=== PATIENT | female | born 1985 | race Caucasian/White ===

== ENCOUNTER 2024-09-13 05:26 | Emergency (ER) | payer OTHER, SELFPAY ==
[2024-09-13] VITALS (10 sets, daily range): BP systolic 172–203; BP diastolic 103–115; PULSE 98–110; RESP 16–33; TEMP 36.9; O2SAT 93–100
--- NOTE | ~2024-09-13 | CT_ITS ---
CLINICAL INDICATION: Left flank pain COMPARISON: None. TECHNIQUE: Multiple contiguous axial images of the abdomen and pelvis were performed without the admi nistration of intravenous contrast The dose-length product (DLP) was 1779.03 mGy-cm. Automated exposure control and iterative reconstruction technique were employed. FINDINGS/OBSERVATIONS: Visualized lower thorax: Dependent atelectasis. The remainder of the bilateral lung bases are clear. The heart is of normal size, without pericardial effusion. Small hiatal hernia is present. Liver: The liver demonstrates homogeneously decreased attenuation (consistent with fatty infiltration) and i s markedly enlarged measuring 22 cm in longitudinal dimension. Gallbladder and biliary system: The gallbladder is only minimally distended, and otherwise unremarkable. Pancreas: Limited evaluation of the pancreas secondary to the lack of intravenous contrast. Spleen: The spleen demonstrates homogeneous attenuation and is not enlarged. Kidneys: Global enlargement of the left kidney with significant left-sided hydroureteronephrosis exte nding to the left UVJ where a 4 mm calculus is identified. The right kidney is unremarkable, as is the course of the right ureter. Adrenal glands: Unremarkable. Gastrointestinal tract: Fecal stasis within the colon. Appendix: The appendix is not definitively visualized. However, no pericecal inflammatory change is identified suggest the presence of acute appendicitis. Vasculature: Unremarkable. Lymph nodes: Limited evaluation without intravenous contrast. Pelvic structures: The bladder is only minimally distended with a 4 mm calculus at the left UVJ. The uterus is anteverted and anteflexed, and otherwise unremarkable. Body wall and musculoskeletal: There are bridging endplate osteophytes at multiple levels in the lower thoracic spine, consistent wi th diffuse idiopathic skeletal hyperostosis (DISH). Degenerative disease at the level of L5/S1. IMPRESSION: Global enlargement of the left kidney with significant left-sided hydroureteronephrosis secondary to a 4 mm calculus at the left UVJ. Reviewed, dictated and finalized at location A. IMPRESSION: Global enlargement of the left kidney with significant left-sided hydroureteron ephrosis secondary to a 4 mm calculus at the left UVJ.
--- OUTSIDE RECORDS SUMMARY | 2024-09-13 05:28 | XMS_ITS | Patient Health Record ---
Author Organization [facility] Address [address] [place], [place] [id number] Care Team Providers Care Assembler Surgical Garment Name Role Phone ARIAN ARNOLD Unavailable [phone] ElanLucie Unavailable Unavailable Reason For Referral No Information Medications Medication SIG (Take, Route, Frequency, Duration) Notes Start Date End Date Status Medrol Dosepak ORAL Medrol DosepakOr iginal MedicationMedrol Dosepak *Reorder from [employer] for eRx and Interaction Alerts* 07/08/2018 Active Plan Of Treatment No Information Insurance Providers Payer Name Payer Address Payer Phone Subscriber Number Group Number Insured Name Patient Relationship to Insured Coverage Start Date Coverage End Date C[employer] [address] [place] [phone] [id number] YOLY LOZANO Self - patient is the insured
--- OUTSIDE RECORDS SUMMARY | 2024-09-13 05:28 | XMS_ITS | Continuity of Care Document ---
Author Organization [facility] Address [address] [place] [address] [place] [address] Phone Care Team Providers Care Transformer Molder Name Role Phone Yazan Deal MD Unavailable Unavailable Advance Directives Directive Yes / No Effective Date File Name No Information Encounters Encounter Description Practice Location Reason(s) For Visit Diagnoses Date Provider Providers Copied on Encounter [facility], [id number] [place] [address] [address], [place], [place], [id number], [place] tel:[phone] [place] Skyler Neff No Information Feb-2 199 9 Toyin Hand. [address] [facility], [facility], [place], [place], [id number], [place]. tel:[phone] Family History Family Member Type Diagnosis Age At Onset No Information Payers Payer name Insurance type Covered libertarian ID Authoriza tion(s) No Information Social History Type Description Quantity Date Captured Comments Sex Female Smoking Status No Information Chief Complaint And Reason For Visit No Information Reason For Referral Reason For Referral No Information History Of Present Illness Encounter Date Complaint History Of Prese nt Illness No Information Functional Status Date Functional Assessmen t No Information Instructions Date Instruction Additional Infor mation No Information Assessments Type Assessment Date No Information Patient Care Teams Name Effective Dates (start - stop) Status Members No Information
--- OUTSIDE RECORDS SUMMARY | 2024-09-13 05:28 | XMS_ITS | Patient Health Record ---
Author Organization [facility] Address [address] [place] [address] Support Name Relationship Address Phone Vira Dang Guarantor Unknown Unavailable Reason For Referral No Information Medications Medication SIG (Take, Route, Frequency, Duration) Notes Start Date End Date Status NONE *Reorder from [facility] for eRx and Interaction Alerts* Active Problems Problem Type SNOMED Code ICD Code Onset Dates Problem Status W/U Status Risk Notes Problem Generalized osteoarthritis (disorder) (719948404) Generalized osteoarthrosis, unspecified site (715.00) 3 Active confirmed Problem Pain in unspecified limb (M79.609) 3 Active confirmed Plan Of Treatment No Information Insurance Providers Payer Name Payer Address Payer Phone Subscriber Number Group Number Insured Name Patient Relationship to Insured Coverage Start Date Coverage End Date [employer] [address] JONO Aquino [id number] Vira Dang Self - patient is the insured 3
--- OUTSIDE RECORDS SUMMARY | 2024-09-13 05:28 | XMS_ITS | Clinical Summary ---
Author Organization [facility] Address [address] [place] [address] Care Team Providers Care Caretaker Resort Name Role Phone Angelique Rose NP Primary Care Provider [phone] Allergies No known active allergies Medications multivitamin tablet tablet take 1 tablet by oral route every day with food 0 0 3 Active mupirocin (BACTROBAN) 2 % ointment Apply topically 2 (two) times a day as needed (Apply to the affected area twice daily as neededd for backterial rash) 30 g 3 Active progesterone (PROMETRIUM) 200 mg capsule Take one capsule at bedtime on days 1-12 every 3 months. 12 capsule 3 4 Active loratadine (CLARITIN) 10 mg tablet Take 1 tablet (10 mg total) by mouth daily Active PARoxetine (PAXIL) 40 mg tabletIndicatio ns:CALLIE (generalized anxiety disorder) Take 1 tablet (40 mg total) by mouth every morning 90 tablet 3 5 Active busPIRone (BUSPAR) 15 mg tabletIndicatio ns:CALLIE (generalized anxiety disorder) Take 1 tablet (15 mg total) by mouth 3 (three) times a day 270 tablet 1 5 02/11/20 25 Active Active Problems Problem Noted Date Diagnosed Date Prehypertension 06/04/2024 Annual physical exam 06/04/2024 Assessment & Plan (06/04/2024 5:21 PM CDT): -Recommended: Healthy diet. Avoiding junk food/fast food. -30 minutes of exercise most days of the week. Increase to 45 minutes for weight loss. Health Maintenance reviewed - labs ordered. -Influenza vaccine every year Recommend: - Topic Date Due DTaP/Tdap/Td Vaccine (2 - Td or Tdap) 01/09/2023 -F/u in 1 year for Annual PE or sooner if needed Polycystic ovarian syndrome 07/26/2023 CALLIE (generalized anxiety disorder) 06/21/2023 Overview (06/21/2023): Needs improvement. Continue Paxil and increase buspirone. Encouraged mindfulness consider counseling. Continue p.r.n. hydroxyzine History of methicillin resis tant Staphylococcus aureus infection 05/28/2014 Increased glucose level 12/02/2013 Overview (06/15/2016): Elevated blood sugar Assessment & Plan (06/21/2023 5:19 PM CDT): Patient is at increased risk for diabetes. Check A1c and fasting glucose. Encouraged healthy diet, exercise, weight loss Palpitations 07/26/2013 Overview (06/16/2016): PALPITATIONS Atopic rhinitis 07/26/2013 Overview (06/16/2016): ALLERGIC RHINITIS NOS Morbid obesity with BMI of 70 and over, adult Overview (06/16/2016): Obesity, Morbid Assessment & Plan (06/04/2024 5:19 PM CDT): Refer to bariatric surgery. Discussed options Assessment & Plan (06/21/2023 5:19 PM CDT): Chronic. Needs improvement. Brief supportive counseling provided today in regards to healthy diet, exercise and weight loss. We did discuss use of GLP 1 medications for weight loss but that this currently unlikely to be covered by her health insurance plan. I did briefly discussed the side effects and use of these medications. She will continue on diet and lifestyle modifications Resolved Problems Problem Noted Date Diagnosed Date Resolved Date Left foot pain 07/03/2018 03/23/2022 Carbuncle/boil 12/02/2013 03/23/2022 Overview (06/15/2016): Recurrent boils Immunizations Immunization Administration Dates Next Due Hep A, Unspecified 06/14/2001,06/14/2000 Hep B, Unspecified 06/14/2001,06/14/2000 Influenza, Quadrivalent, Spl it, Preservative Free, Intramuscular 12/13/2022,12/23/2021,12/10/2020,03/12 Influenza, Trivalent, IM (MDV) 12/10/2013 Influenza, Trivalent, Preser vative Free, Intramuscular 12/26/2023,12/10/2012 Influenza, Unspecified 12/23/2021,2019,12/12/2017,12/11 Meningococcal ACWY, Unspecified 06/14/2001 Pfizer SARS-CoV-2 Monovalent Vaccination (12+ Yrs) PURPLE 01/19/2021,04/09/2020,03/19/2020 Tdap 01/09/2013 Surgical History Surgery Date Site/Laterality Comments KNEE ARTHROSCOPY W/ LATERAL RELEASE Torn meniscus - 2014 Right Medical History Medical History Date Comments MRSA infection Obesity Anxiety 08/2018 Family History Medical History Relation Name Comments No Known Problems Father Colon cancer Maternal Grandfather Breast cancer Mother Pili (Breast Cancer) Heart disease Paternal Grandfather Santos Heart disease; Hyperlipidemia Paternal Grandfather Santos Hyper lipidemia; Hypertension Paternal Grandfather Santos Hyperte nsion; Heart disease Paternal Grandmother Peg Heart disease; Hyperlipidemia Paternal Grandmother Peg Hyper lipidemia; Hypertension Paternal Grandmother Peg Hyperte nsion; No Known Problems Sister Ovarian cancer Neg Hx Uterine cancer Neg Hx Relation Name Status Comments Father Maternal Grandfather Mother Pili (Breast Cancer) Paternal Grandfather Santos Paternal Grandmother Peg Sister Social History Tobacco Use Types Packs/Day Years Used Date Smoking Tobacco: Never Smokeless Tobacco: Never Tobacco Cessation:Counseling Given: Not Answered Alcohol Use Standard Drinks/Week Comments Not Currently 0 (1 standard drink = 0.6 oz pur e alcohol) AUDIT-C Answer Date Recorded Q1: How often do you have a drink containing alc ohol? 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 Gender Identity Not on file Sexual Orientation Not on file Obstetrics History Para Term AB IAB SAB Ectopic Multiple Livin g Live Births 0 0 0 0 0 0 0 0 0 0 0 Last Filed Vital Signs Vital Sign Reading Time Taken Comments Blood Pressure 134/92 06/04/2024 4:01 PM CDT Pulse 84 06/04/2024 4:01 PM CDT Temperature 37 C (98.6 F) 06/04/2024 4:01 PM CDT Respiratory Rate 20 06/04/2024 4:01 PM CDT Oxygen Saturation 98% 06/04/2024 4:01 PM CDT Inhaled Oxygen Concentration - - Weight 204.8 kg (451 lb 9.6 oz) 06/04/2024 4:01 PM CDT Height 163.8 cm (5' 4.5) 06/04/2024 4:01 PM CDT Body Mass Index 76.32 06/04/2024 4:01 PM CDT Plan of Treatment Health Maintenance Due Date Last Done Comments Hepatitis C Screening 1983 DTaP/Tdap/Td Vaccine (2 - Td or Tdap) 01/09/2023 01/09/2013 Cervical Cancer Screening 07/25/20242023, 07/26/2023, 01/13/2021 Breast Cancer Screening-Mammogram 07/26/2024 07/27/2023 Influenza Vaccine (#1) 2024 , 12/13/2022, 12/23/2021, Additional history exists Depression Screening 06/04/2025 06/04/2024, 07/26/2023, 06/21/2023, Additional history exists Regular Well Visit/Exam 18-64 06/04/2025 06/04/2024, 07/26/2023, 06/21/2023, Additional history exists Hepatitis B Screening Completed 06/14/2001, 001 Covid-19 Vaccine Completed 12/26/2023, 06/2022, 12/23/2021, Additional history exists HPV Vaccines Aged Out No longer eligi ble based on patient's age to complete this topic Pneumococcal vaccine <65 Aged Out No longer eligible based on patient's age to complete this topic Varicella Vaccines Discontinued Procedures Procedure Name Priority Date/Time Associated Diagnosis Comments SCREENING MAMMOGRAM BILATERAL W MARCOS Schedule Routine, Read Routine (OP Routine) 07/27/2023 12:13 PM CDT Screening mammogram, encounter for HIGH RISK HPV DNA DETECTION WITH GENOTYPING Routine 07/26/2023 3:55 PM CDT Encounter for gynecological examination with Papanicolaou smear of cervix from Last 3 Months or Most Recently Relevant to Health Maintenance Results * Screening Mammogram Bilateral W Marcos (07/27/2023 12:13 PM CDT) Anatomical Region Laterality Modality Breast Bilateral Mammography Narrative 07/30/2023 1:21 PM CDT Mammogram Technique: Bilateral Digital Breast Tomosynthesis, Bilateral C-view 2D Screening mammogram. Views obtained: bilateral craniocaudal and bilateral mediolateral oblique. Computer Aided Detection was performed. Mammogram Findings: This is a baseline study. There are scattered areas of fibroglandular density. There is no suspicious abnormality in either breast. Impression: There is no mammographic evidence of malignancy. Annual screening mammography is recommended. OVERALL FINAL ASSESSMENT: BI-RADS CATEGORY 1: Negative. Procedure Note She Leon MD - 07/30/2023 Mammogram Technique: Bilateral Digital Breast Tomosynthesis, Bilateral C-view 2D Screening mammogram. Views obtained: bilateral craniocaudal and bilateral mediolateral oblique. Computer Aided Detection was performed. Mammogram Findings: This is a baseline study. There are scattered areas of fibroglandular density. There is no suspicious abnormality in either breast. Impression: There is no mammographic evidence of malignancy. Annual screening mammography is recommended. OVERALL FINAL ASSESSMENT: BI-RADS CATEGORY 1: Negative. us Self Screening Mammogram IMG MAMMO PROCEDURES Fi nal Result * High Risk HPV DNA Detection with Genotyping (Molecular component) (07/26/2023 3:55 PM CDT) HPV HR 16 Not Detected Not Detected [facility] Comment:Testing performed by : [facility], [address] [place]., [address] HPV HR 18 Not Detected Not Detected [facility] Comment:Testing performed by : [facility], [address] [place]., [address] HPV HR Non 16/18 Not Detected Not Detected [facility] Comment: Interpretive Data Nucleic acid amplification for detection of high-risk Human Papilloma virus (HPV) is performed by the Margarita Michael 6800 HPV test. This assay specifically detects HPV-16 and HPV-18 genotypes. The following HPV genotypes are detected as high-risk HPV: HPV-31, 33, 35, ,39, 45, 51, 52, 56, 58, 59, 66, and 68. This assay has been approved by the [place] Food and Drug Administration for detection of HPV in cervical specimens collected by a physician using an endocervical brush/spatula or cervical broom and placed in the ThinPrep Pap Test PreservCyt collection containers. The performance characteristics of this test have been verified by the [facility] Molecular Infectious Disease laboratory. Correlate with separately reported cytology results, as applicable. Interpretive data last revised 22 Testing performed by: [facility], [address] [place]., [address] Endocervical 07/26/2023 3:55 PM CDT 07/27/2023 12:41 PM CDT Narrative [facility] - 07/28/2023 1:35 AM CDT Clinical history and diagnosis->screening Testing type->Screening Last menstrual period (date if known)->unknown Lalita Valdes NP LAB BODY FLUIDS AND STOOLS ORDER ERASMO Final Result [facility] [address] [address] [place] [address] BJ from Last 3 Months or Most Recently Relevant to Health Maintenance Insurance [employer] Address: [facility] [id number] [place] [phone] [employer] Address: [facility] [id number] [place] [phone] [employer] Address: [facility] [id number] [place] [phone] Care Teams Caretaker Resort Relationship Specialty Start Date End Date Angelique Rose NP [address] [place] [address] PCP - General Family Medicine 06/04/24
--- OUTSIDE RECORDS SUMMARY | 2024-09-13 05:28 | XMS_ITS | Referral Summary ---
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 Self Screening Mammogram IMG MAMMO PROCEDURES Fi nal Result * High Risk HPV DNA Detection with Genotyping (Molecular component) (07/26/2023 3:55 PM CDT) HPV HR 16 Not Detected Not Detected [facility] Comment:Testing performed by : [facility], [address] [place]., [address] HPV HR 18 Not Detected Not Detected [facility] Comment:Testing performed by : [facility], [address] [place]., [address] HPV HR Non 16/18 Not Detected Not Detected [facility] Comment: Interpretive Data Nucleic acid amplification for [...] this test have been verified by the [facility] Molecular Infectious Disease laboratory. Correlate with separately reported cytology results, as applicable. Interpretive data last revised 22 Testing performed by: [facility], [address] [place]., [address] Endocervical 07/26/2023 3:55 PM CDT 07/27/2023 12:41 PM CDT Narrative [facility] - 07/28/2023 1:35 AM CDT Clinical history and diagnosis->screening Testing type->Screening Last menstrual period (date if known)->unknown Lalita Valdes NP LAB BODY FLUIDS AND STOOLS ORDER ERASMO Final Result Performing Organization Address City/[place] Number [place] [address] [facility] Department [place] [address] [facility] from Last 3 Months or Most Recently Relevant to Health Maintenance Insurance [facility] CIG CIG Care Teams Machine Featheredger And Reducer Relationship Specialty Start Date End Date Angelique Rose NP [address] [facility] [address] [place] [address] PCP - General Family Medicine 06/04/24
--- NOTE | 2024-09-13 05:38 | ED_ITS ---
HPI - Abdominal Pain General Chief Complaint: Abdominal Pain <Chepe Zepeda MD - Last Filed: 09/14/24 05:41> Stated Complaint: flank pain <Chepe Zepeda MD - Last Filed: 09/14/24 05:41> Time Seen by Provider: 09/13/24 05:28 <Chepe Zepeda MD - Last Filed: 09/14/24 05:41> History of Present Illness HPI narrative: 39-year-old female with history of morbid obesity and anxiety presenting to the emergency department with left-sided flank pain radiating towards her back. Symptoms onset last night. No history of kidney stones or dysuria, hematuria. States that she also had some nausea and 1 time emesis. Does not take any medications aside from anxiety medicines. No chest pain difficulty in breathing. No pain radiating into the groin or into her low back. No neuropathy. Ambulatory without any assistance. No trauma or injury. Family history of kidney stones but no personal history. Was otherwise recently healthy. <Chepe Zepeda MD - Last Filed: 09/14/24 05:41> Related Data Allergies/Adverse Reactions: Allergies Allergy/AdvReac Type Severity Reaction Status Date / Time No Known Allergies Allergy Verified 07/24/12 15:49 <Chepe Zepeda MD - Last Filed: 09/14/24 05:41> Review of Systems 2 Review of Systems: As reviewed above in HPI <Chepe Zepeda MD - Last Filed: 09/14/24 05:41> Exam 2 Narrative: GENERAL: Morbidly obese but not any acute distress HEAD: [Normocephalic, atraumatic.] EYES: [PERRLA and EOMI.] ENT: Nares clear, no rhinorrhea or epistaxis. Mucous membranes moist. NECK: Supple. CHEST: [Clear to auscultation. No respiratory distress.] HEART: [Regular rate and rhythm]. No murmur heard. [Normal peripheral pulses.] ABDOMEN: [Soft, nondistended], reproducible tenderness to palpation over the left flank and left CVA, [No rigidity or guarding] EXTREMITIES: Normal range of motion. [No edema.] SKIN: Warm, dry, no rash. NEURO: [No focal deficits]. Alert and oriented [x3.] PSYCH: [Normal mood and affect.] <Chepe Zepeda MD - Last Filed: 09/14/24 05:41> Course Vital Signs Vital signs: Vital Signs Temperature 36.9 C 09/13/24 05:31 Pulse Rate 110 H 09/13/24 05:31 Respiratory Rate 19 09/13/24 05:31 Blood Pressure 203/109 H 09/13/24 05:31 Pulse Oximetry 100 09/13/24 05:31 Oxygen Delivery Room Air 09/13/24 05:31 Temperature 36.9 C 09/13/24 05:31 Pulse Rate 100 09/13/24 06:52 Respiratory Rate 30 H 09/13/24 06:52 Blood Pressure 175/104 H 09/13/24 06:52 Pulse Oximetry 93 09/13/24 06:52 Oxygen Delivery Room Air 09/13/24 05:31 <Chepe Zepeda MD - Last Filed: 09/14/24 05:41> Vital Signs Temperature 36.9 C 09/13/24 05:31 Pulse Rate 110 H 09/13/24 05:31 Respiratory Rate 19 09/13/24 05:31 Blood Pressure 203/109 H 09/13/24 05:31 Pulse Oximetry 100 09/13/24 05:31 Oxygen Delivery Room Air 09/13/24 05:31 Temperature 36.9 C 09/13/24 05:31 Pulse Rate 100 09/13/24 06:52 Respiratory Rate 30 H 09/13/24 06:52 Blood Pressure 175/104 H 09/13/24 06:52 Pulse Oximetry 93 09/13/24 06:52 Oxygen Delivery Room Air 09/13/24 05:31 <Mikel Anaya MD - Last Filed: 09/13/24 08:18> MDM - Abdominal Pain MDM Narrative Medical decision making narrative: 39-year-old female with history of morbid obesity and anxiety presenting to the emergency department with left-sided flank pain radiating towards her back. Symptoms onset last night. No history of kidney stones or dysuria, hematuria. States that she also had some nausea and 1 time emesis. Does not take any medications aside from anxiety medicines. No chest pain difficulty in breathing. No pain radiating into the groin or into her low back. No neuropathy. Ambulatory without any assistance. No trauma or injury. Family history of kidney stones but no personal history. Was otherwise recently healthy. Patient does have some reproducible tenderness over the left flank upper region and left CVA but no left lower quadrant tenderness. No tenderness of the right- sided abdomen. No signs of rigidity guarding or peritonitis. Mildly tachycardic and hypertensive, afebrile with saturation 100% on room air. Not any acute distress. Patient is significantly morbidly obese and given analgesia with Dilaudid, symptom control Zofran fluid bolus. Urinalysis, CBC, CMP and lipase were obtained. CT scan without contrast ordered to rule out flank/kidney pathology such as stones. Possible gastritis or gastroenteritis, low suspicion intra-abdominal infection or abscess. Urinary tract infection or pyelonephritis also possible. Patient had significant improvement in pain with Dilaudid and her vital signs are significantly improved. Laboratory studies showed leukocytosis of 16.5, normal hemoglobin, normal platelets. Electrolytes unremarkable. Normal renal function, normal LFTs. Glucose 151. CT scan is pending and will be signed out to the oncoming ER physician pending imaging, re-evaluation and final disposition based on the results. CT scan showed a 4 mm stone at the UVJ Urinalysis showed no evidence UTI Patient's pain was improved the patient be discharged home on Flomax [place] and Zofran Patient should follow-up with urology <Chepe Zepeda MD - Last Filed: 09/14/24 05:41> 39-year-old female with history of morbid obesity and anxiety presenting to the emergency department with left-sided flank pain radiating towards her back. Symptoms onset last night. No history of kidney stones or dysuria, hematuria. States that she also had some nausea and 1 time emesis. Does not take any medications aside from anxiety medicines. No chest pain difficulty in breathing. No pain radiating into the groin or into her low back. No neuropathy. Ambulatory without any assistance. No trauma or injury. Family history of kidney stones but no personal history. Was otherwise recently healthy. Patient does have some reproducible tenderness over the left flank upper region and left CVA but no left lower quadrant tenderness. No tenderness of the right- sided abdomen. No signs of rigidity guarding or peritonitis. Mildly tachycardic and hypertensive, afebrile with saturation 100% on room air. Not any acute distress. Patient is significantly morbidly obese and given analgesia with Dilaudid, symptom control Zofran fluid bolus. Urinalysis, CBC, CMP and lipase were obtained. CT scan without contrast ordered to rule out flank/kidney pathology such as stones. Possible gastritis or gastroenteritis, low suspicion intra-abdominal infection or abscess. Urinary tract infection or pyelonephritis also possible. Patient had significant improvement in pain with Dilaudid and her vital signs are significantly improved. Laboratory studies showed leukocytosis of 16.5, normal hemoglobin, normal platelets. Electrolytes unremarkable. Normal renal function, normal LFTs. Glucose 151. CT scan is pending and will be signed out to the oncoming ER physician pending imaging, re-evaluation and final disposition based on the results. CT scan showed a 4 mm stone at the UVJ Urinalysis showed no evidence UTI Patient's pain was improved the patient be discharged home on Flomax [place] and Zofran Patient should follow-up with neurology <Mikel Anaya MD - Last Filed: 09/13/24 08:18> Medical Records Attestation: I reviewed the patient's medical records. <Chepe Zepeda MD - Last Filed: 09/14/24 05:41> Lab Data Attestation: I reviewed the patient's lab results. <Chepe Zepeda MD - Last Filed: 09/14/24 05:41> Result diagrams: 09/13/24 05:37 09/13/24 05:37 <Chepe Zepeda MD - Last Filed: 09/14/24 05:41> Labs: Lab Results 09/13/24 09/13/24 09/13/24 Range/Units 05:31 05:37 07:16 WBC 16.5 H (4.5-10.0) K/mm3 RBC 4.87 (4.2-5.4) M/mm3 Hgb 13.2 (12.0-15.0) g/dL Hct 42.7 (37.0-47.0) % MCV 87.7 (80-100) fl MCH 27.1 (26-34) pg MCHC 30.9 L (32-36) g/dl RDW 14.2 (11.5-14.5) % Plt Count 342 (150-375) k/mm3 MPV 10.9 H (7.4-10.4) fl Immature Gran % (Auto) 0.5 (0-0.5) % Neut % (Auto) 80.2 H (45.5-73.1) % Lymph % (Auto) 12.9 L (18.3-44.2) % [place] % (Auto) 5.7 (2.6-8.5) % Eos % (Auto) 0.5 (0-4.4) % Baso % (Auto) 0.2 (0.2-1.2) % Lymph # (Auto) 2.13 (0.9-3.2) K/mm3 [place] # (Auto) 0.9 H (0.1-0.6) K/mm3 Eos # (Auto) 0.1 (0-0.3) K/mm3 Baso # (Auto) 0.0 (0.0-0.1) K/mm3 Abs Immat Gran (auto) 0.08 H (0.00-0.031) K/mm3 Absolute Neuts (auto) 13.3 H (1.3-6.7) K/mm3 Absolute Nucleated RBC 0.000 (0.0-0.012) K/mm3 Nucleated RBC % 0.0 (0.0-0.2) % Sodium 140 (137-145) mmol/L Potassium 4.1 (3.4-5.0) mmol/L Chloride 106 (98-107) mmol/L Carbon Dioxide 24 (22-30) mmol/L Anion Gap 10 (4-12) mmol/L BUN 17 (7-17) mg/dL Creatinine 0.82 (0.7-1.0) mg/dL Estim Creat Clear Calc 138 ml/min Estimated GFR > 60 (59 - ) Glucose 151 H (65-110) mg/dL Calcium 9.5 (8.4-10.2) mg/dL Total Bilirubin 0.4 (0.2-1.3) mg/dL AST 36 (14-36) U/L ALT 28 (6-35) U/L Alkaline Phosphatase 82 (38-126) U/L Total Protein 7.9 (6.3-8.2) g/dL Albumin 4.1 (3.5-5.1) g/dL Lipase 64 (23-300) U/L Urine Color Yellow (Yellow) Urine Appearance Clear (Clear) Urine pH 7.5 (5.0-9.0) Ur Specific [place] 1.021 (1.001-1.035) Urine Protein 1+ H (Negative) mg/dL Urine Glucose (UA) Negative (Negative) mg/dL Urine Ketones Negative (Negative) mg/dL Ur Blood (Man) 1+ H (Negative) Urine Nitrate Negative (Negative) Urine Bilirubin Negative (Negative) Urine Urobilinogen 0.2 (<2.0) mg/dL Leukocyte Esterase Rfl Negative (Negative) JULIETTE/UL Urine RBC 21-50 H (0-2) /hpf Urine WBC 0-5 (0-3) /hpf Ur Squamous Epith Cells None seen (Few) /hpf Urine Bacteria None seen /hpf Urine Casts 0-2 POC Urine HCG, Qual Negative (Negative) <Chepe Zepeda MD - Last Filed: 09/14/24 05:41> Lab Results 09/13/24 09/13/24 09/13/24 Range/Units 05:31 05:37 07:16 WBC 16.5 H (4.5-10.0) K/mm3 RBC 4.87 (4.2-5.4) M/mm3 Hgb 13.2 (12.0-15.0) g/dL Hct 42.7 (37.0-47.0) % MCV 87.7 (80-100) fl MCH 27.1 (26-34) pg MCHC 30.9 L (32-36) g/dl RDW 14.2 (11.5-14.5) % Plt Count 342 (150-375) k/mm3 MPV 10.9 H (7.4-10.4) fl Immature Gran % (Auto) 0.5 (0-0.5) % Neut % (Auto) 80.2 H (45.5-73.1) % Lymph % (Auto) 12.9 L (18.3-44.2) % [place] % (Auto) 5.7 (2.6-8.5) % Eos % (Auto) 0.5 (0-4.4) % Baso % (Auto) 0.2 (0.2-1.2) % Lymph # (Auto) 2.13 (0.9-3.2) K/mm3 [place] # (Auto) 0.9 H (0.1-0.6) K/mm3 Eos # (Auto) 0.1 (0-0.3) K/mm3 Baso # (Auto) 0.0 (0.0-0.1) K/mm3 Abs Immat Gran (auto) 0.08 H (0.00-0.031) K/mm3 Absolute Neuts (auto) 13.3 H (1.3-6.7) K/mm3 Absolute Nucleated RBC 0.000 (0.0-0.012) K/mm3 Nucleated RBC % 0.0 (0.0-0.2) % Sodium 140 (137-145) mmol/L Potassium 4.1 (3.4-5.0) mmol/L Chloride 106 (98-107) mmol/L Carbon Dioxide 24 (22-30) mmol/L Anion Gap 10 (4-12) mmol/L BUN 17 (7-17) mg/dL Creatinine 0.82 (0.7-1.0) mg/dL Estim Creat Clear Calc 138 ml/min Estimated GFR > 60 (59 - ) Glucose 151 H (65-110) mg/dL Calcium 9.5 (8.4-10.2) mg/dL Total Bilirubin 0.4 (0.2-1.3) mg/dL AST 36 (14-36) U/L ALT 28 (6-35) U/L Alkaline Phosphatase 82 (38-126) U/L Total Protein 7.9 (6.3-8.2) g/dL Albumin 4.1 (3.5-5.1) g/dL Lipase 64 (23-300) U/L Urine Color Yellow (Yellow) Urine Appearance Clear (Clear) Urine pH 7.5 (5.0-9.0) Ur Specific [place] 1.021 (1.001-1.035) Urine Protein 1+ H (Negative) mg/dL Urine Glucose (UA) Negative (Negative) mg/dL Urine Ketones Negative (Negative) mg/dL Ur Blood (Man) 1+ H (Negative) Urine Nitrate Negative (Negative) Urine Bilirubin Negative (Negative) Urine Urobilinogen 0.2 (<2.0) mg/dL Leukocyte Esterase Rfl Negative (Negative) JULIETTE/UL Urine RBC 21-50 H (0-2) /hpf Urine WBC 0-5 (0-3) /hpf Ur Squamous Epith Cells None seen (Few) /hpf Urine Bacteria None seen /hpf Urine Casts 0-2 POC Urine HCG, Qual Negative (Negative) <Mikel Anaya MD - Last Filed: 09/13/24 08:18> Imaging Data Radiologist's impression: ITS Impressions Abdomen/Pelvis CT 09/13/24 06:55 IMPRESSION: Global enlargement of the left kidney with significant left-sided hydroureteronephrosis secondary to a 4 mm calculus at the left UVJ. <Chepe Zepeda MD - Last Filed: 09/14/24 05:41> ITS Impressions Abdomen/Pelvis CT 09/13/24 06:55 IMPRESSION: Global enlargement of the left kidney with significant left-sided hydroureteronephrosis secondary to a 4 mm calculus at the left UVJ. <Mikel Anaya MD - Last Filed: 09/13/24 08:18> Discharge Plan Discharge Clinical Impression: Acute abdominal pain in left flank, Acute left-sided thoracic back pain, Hypertension, Ureterolithiasis <Chepe Zepeda MD - Last Filed: 09/14/24 05:41> Patient Disposition: Home <Chepe Zepeda MD - Last Filed: 09/14/24 05:41> Condition: Stable <Chepe Zepeda MD - Last Filed: 09/14/24 05:41> Instructions: Antibiotic Form, Kidney Stones (ED), How to Strain Your Urine (ED), Abdominal Pain (ED) <Chepe Zepeda MD - Last Filed: 09/14/24 05:41> Patient Language: Irish <Chepe Zepeda MD - Last Filed: 09/14/24 05:41> Prescriptions: New tamsulosin [Flomax] 0.4 mg capsule 0.4 mg PO DAILY Qty: 10 0RF ondansetron 4 mg tablet,disintegrating 4 mg PO Q8H PRN (Reason: nausea and vomiting) Qty: 10 0RF hydrocodone-acetaminophen 5-325 mg tablet 1 tablet PO Q6H PRN (Reason: pain) 3 Days Qty: 12 0RF <Chepe Zepeda MD - Last Filed: 09/14/24 05:41> Follow-up/Referrals: Jad Lacey MD [Physician] - Erick Conteh MD [Physician] - UNKNOWN,DOCTOR [Primary Care Provider] - <Chepe Zepeda MD - Last Filed: 09/14/24 05:41> Time of Disposition: 08:14 <Chepe Zepeda MD - Last Filed: 09/14/24 05:41> 08:14 <Mikel Anaya MD - Last Filed: 09/13/24 08:18>
[2024-09-13 05:42] LABS: Hematocrit 42.7 % (37.0-47.0); Hemoglobin 13.2 g/dL (12.0-15.0); Immature Granulocyte Percent A 0.5 % (0-0.5); Lymphocytes Absolute Auto 2.13 K/mm3 (0.9-3.2); Mean Corpuscular HGB Conc 30.9 g/dl (32-36); Mean Corpuscular Hemoglobin 27.1 pg (26-34); Mean Corpuscular Volume 87.7 fl (80-100); Nucleated Red Blood Cells Absolute Auto 0.000 K/mm3 (0.0-0.012); Nucleated Red Blood Cells Perc 0.0 % (0.0-0.2); Platelet Count Result 342 k/mm3 (150-375); Red Blood Count 4.87 M/mm3 (4.2-5.4); White Blood Count 16.5 K/mm3 (4.5-10.0)
[2024-09-13] MEDS: LACTATED RINGERS 1,000 ML 999 ML IV CONT (05:43)
[2024-09-13] MEDS: HYDROmorphone HCL INJ (*CRX) 2 MG/ML VIAL 1 MG IV PUSH (05:44)
[2024-09-13] MEDS: ONDANSETRON INJ 4 MG/2 ML VIAL IV PUSH (05:44)
[2024-09-13 05:53] LABS: Alanine Aminotransferase 28 U/L (6-35); Albumin Level 4.1 g/dL (3.5-5.1); Alkaline Phosphatase 82 U/L (38-126); Anion Gap 10 mmol/L (4-12); Aspartate Amino Transferase 36 U/L (14-36); Bilirubin,Total 0.4 mg/dL (0.2-1.3); Blood Urea Nitrogen 17 mg/dL (7-17); Calcium 9.5 mg/dL (8.4-10.2); Carbon Dioxide 24 mmol/L (22-30); Chloride 106 mmol/L (98-107); Estimated CRCL calculation 138 ml/min; Estimated Glomerular Filt Rate > 60; Glucose 151 mg/dL (65-110); Lipase 64 U/L (23-300); Potassium 4.1 mmol/L (3.4-5.0); Sodium 140 mmol/L (137-145); Total Protein 7.9 g/dL (6.3-8.2)
--- OUTSIDE RECORDS SUMMARY | 2024-09-13 06:09 | XMS_ITS | Continuity of Care Document ---
Author Organization [facility] Address [address] [place] [address] [place] [address] Phone Care Team Providers Care Naval [employer]crew[employer] Helicopter Name Role Phone Yazan Deal MD Unavailable Unavailable Advance Directives Directive Yes / No Effective Date File Name No Information Encounters Encounter Description Practice Location Reason(s) For Visit Diagnoses Date Provider Providers Copied on Encounter [facility], [id number] [place] [address] [address], [place], [place], [id number], [place] tel:[phone] SEC [place] Skyler Neff No Information Feb-2 199 9 Toyin Hand. [address] [facility], [facility] [address], [place], [place], [id number], [place]. tel:[phone] Family History Family Member Type Diagnosis Age At Onset No Information Payers Payer name Insurance type Covered constitution party ID Authoriza tion(s) No Information Social History [...]
--- OUTSIDE RECORDS SUMMARY | 2024-09-13 06:09 | XMS_ITS | Referral Summary ---
Author Organization [facility] Address [address] [place] [address] Care Team Providers Care News Correspondent Name Role Phone Angelique Rose NP Primary Care Provider [phone] Allergies No known active allergies Medications multivitamin [...] on file Legal Sex Female 8:50 PM [employer] Gender Identity Not on file Sexual Orientation [...] HPV HR 16 Not Detected Not Detected [facility] Comment:Testing performed by : [facility], [address] [place]., [address] HPV HR 18 Not Detected Not Detected [facility] Comment:Testing performed by : [facility], [address] [place]., [address] HPV HR Non 16/18 Not Detected Not [...] this test have been verified by the [facility] Molecular Infectious Disease laboratory. Correlate with separately reported cytology results, as applicable. Interpretive data last revised 22 Testing performed by: [facility], [address] [place]., [address] Endocervical 07/26/2023 3:55 PM CDT 07/27/2023 12:41 PM CDT Narrative [facility] - 07/28/2023 1:35 AM CDT Clinical history and diagnosis->screening Testing type->Screening Last menstrual period (date if known)->unknown Lalita Valdes NP LAB BODY FLUIDS AND STOOLS ORDER ERASMO Final Result Performing Organization Address [place] [address] [facility] Department [place] [address] [facility] from Last 3 Months or Most Recently Relevant to Health Maintenance Insurance [employer] Address: [facility] [id number] [place] [phone] [employer] Address: [facility] [address] [place] [address] [employer] Address: [facility] [id number] [place] [address] Care Teams News Correspondent Relationship Specialty Start Date End Date Angelique Rose NP [address] [facility] [address] [place] [address] PCP - General Family Medicine 06/04/24
--- OUTSIDE RECORDS SUMMARY | 2024-09-13 06:09 | XMS_ITS | Clinical Summary ---
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 Correlate with separately reported cytology results, as applicable. Interpretive data last revised 22 Testing performed by: [facility], [address] [place]., [address] Endocervical 07/26/2023 3:55 PM CDT 07/27/2023 12:41 PM CDT Narrative [facility] - 07/28/2023 1:35 AM CDT Clinical history and diagnosis->screening Testing type->Screening Last menstrual period (date if known)->unknown Lalita Valdes NP LAB BODY FLUIDS AND STOOLS ORDER ERASMO Final Result [facility] [address] [address] [place] [address] [facility] from Last 3 Months or Most Recently Relevant to Health Maintenance Insurance [employer] Address: [facility] [id number] [place] [phone] [employer] Address: [facility] [id number] [place] [phone] [employer] Address: [facility] [address] [phone] Care Teams [employer] Iam Consultant Relationship Specialty Start Date End Date Angelique Rose NP [address] [place] [address] PCP - General Family Medicine 06/04/24
[2024-09-13 07:23] LABS: BEDSIDEPREGUCG Negative (Negative)
[2024-09-13 07:27] LABS: Appearance Urine Clear (Clear); Glucose Urine UA Negative (Negative); Leukocyte Esterase Ur Negative LEU/UL (Negative); Nitrate Urine Negative (Negative); Specific Grav Ur 1.021 (1.001-1.035)
[2024-09-13 07:28] LABS: Add Urine Microscopic? YES; Non Pathogenic Casts 0-2
[2024-09-13] MEDS: TAMSULOSIN HCL 0.4 MG CAPSULE PO (08:17)
[2024-09-13] MEDS: HYDROcodone/acetaminophen (*CRX) 5-325 MG TABLET 1 TAB PO (08:17)
== END 2024-09-13 08:35 | disposition home or self-care (01) ==
PROVIDERS: Emergency Provider Student in an Organized Health Care Education/Training Program
DX: N13.2 Hydronephrosis with renal and ureteral calculous obstruction (principal); M54.6 Pain in thoracic spine; I10 Essential (primary) hypertension; F41.9 Anxiety disorder, unspecified; E66.01 Morbid (severe) obesity due to excess calories; Z68.45 Body mass index [BMI] 70 or greater, adult
CPT/HCPCS: 36415; 74176; 80053; 81001; 81025; 83690; 85025; 96361; 96374; 96375; 99284; A9270; J1171; J2405; J7120